=== PATIENT | female | born 1970 | race Hispanic/Latino ===

== ENCOUNTER 2024-04-07 21:44 | Emergency (ER) | payer OTHER ==
[~2024-04-07] VITALS: Ht 160 cm; Wt 63.5 kg
[2024-04-07 22:30] VITALS: PULSE 86; RESP 19; TEMP 97.9
[2024-04-07] MEDS ORDERED: ULTRAM 50MG50 MG PO (22:48)
[2024-04-07] MEDS: TRAMADOL HCL 50 MG TAB PO STA (22:56)
[2024-04-07 23:55] VITALS: BP 120/72; PULSE 80; RESP 16; TEMP 98.2; O2SAT 100
== END 2024-04-07 23:30 | disposition home or self-care (01) ==
LOC: ER 22:00
DX: M25.511 Pain in right shoulder (principal); V18.4XXA Pedal cycle driver injured in noncollision transport accident in traffic accident, initial encounter; Y93.55 Activity, bike riding; Y92.488 Other paved roadways as the place of occurrence of the external cause; E11.9 Type 2 diabetes mellitus without complications; H40.9 Unspecified glaucoma; Z98.84 Bariatric surgery status
CPT/HCPCS: 99284